=== PATIENT | male | born 1975 | race Caucasian/White ===

== ENCOUNTER 2017-12-27 12:16 | Emergency (ER) | payer OTHER ==
[2017-12-27 12:56] VITALS: BP 113/81; PULSE 79; RESP 18; TEMP 98.4
[2017-12-27] MEDS ORDERED: DIPH,PERTUS(ACELL)TETVAC-LF 0.5 ML VIAL IM ONE (13:01)
--- NOTE | 2017-12-27 13:58 | ED ---
Upper Extremity HPI - General Chief Complaint: Extremity Injury, Upper Stated Complaint: Poss Metal Piece in L Arm Time Seen by Provider: 12/27/17 12:58 Source: patient, RN notes reviewed Mode of arrival: ambulatory Limitations: no limitations - History of Present Illness Initial Comments: 42-year-old male presents emergency Department chief complaint foreign body left arm. Patient states that he was taking another hammer to remove a Board from his deck and states that he struck another hammer and states that it chipped off a piece into his left arm. He is not sure when his last tetanus was. Patient states that his left forearm he is right-hand dominant. - Related Data Previous Rx's Medication Instructions Recorded Cephalexin [Keflex] 500 mg PO Q6HR #28 cap 12/27/17 Allergies Allergy/AdvReac Type Severity Reaction Status Date / Time No Known Allergies Allergy Verified 12/27/17 12:55 Review of Systems ROS Statement: Those systems with pertinent positive or pertinent negative responses have been documented in the HPI. ROS Other: All systems not noted in ROS Statement are negative. Past Medical History Past Medical History: No Reported History History of Any Multi-Drug Resistant Organisms: None Reported Past Surgical History: Appendectomy, Cholecystectomy Past Psychological History: PTSD Smoking Status: Never smoker Past Alcohol Use History: None Reported Past Drug Use History: None Reported General Exam Limitations: no limitations General appearance: alert, in no apparent distress Respiratory exam: Present: normal lung sounds bilaterally. Absent: respiratory distress, wheezes, rales, rhonchi, stridor Cardiovascular Exam: Present: regular rate, normal rhythm, normal heart sounds. Absent: systolic murmur, diastolic murmur, rubs, gallop, clicks Extremities exam: Present: other (Left forearm there is a small puncture wound no active bleeding patient has full range of motion neurovascular intact) Course Vital Signs 12/27/17 12:54 Temperature 98.4 F Pulse Rate 79 Respiratory 18 Rate Blood Pressure 113/81 O2 Sat by Pulse 100 Oximetry Procedures - Procedures Initial comment: Foreign-body left arm area was anesthetized with 1% lidocaine without epinephrine 4 mL were used #11 blade was used to make the incision larger, hemostats. Used to remove the foreign body with no complications. Patient means to be neurovascular intact full range of motion. Medical Decision Making - Medical Decision Making 42-year-old male presented for left arm foreign-body this was removed in the emergency department. Patient was placed on antibiotics. His tetanus was updated. Disposition Clinical Impression: Foreign body in left forearm Disposition: HOME SELF-CARE Condition: Stable Instructions: Soft Tissue Foreign Body (ED) Additional Instructions: Please return to the Emergency Department if symptoms worsen or any other concerns. Prescriptions: Cephalexin [Keflex] 500 mg PO Q6HR #28 cap Is patient prescribed a controlled substance at d/c from ED?: No Referrals: Michael Mcknight MD [Primary Care Provider] - 1-2 days Time of Disposition: 13:58
--- NOTE | 2017-12-27 14:03 | XR ---
EXAMINATION TYPE: XR forearm LT , 2 VIEWS DATE OF EXAM ORDERED: 12/27/2017 HISTORY: Pain. COMPARISON: None. FINDINGS: No fracture or dislocation is seen. There is a 4.2 mm metallic sliver in the superficial d orsal soft tissues of the distal forearm. IMPRESSION: 1. NO ACUTE OSSEOUS LESION. 2. RETAINED FOREIGN BODY.
--- NOTE | 2017-12-27 14:55 | XR ---
Left forearm HISTORY: Removal of foreign body 2 views of the forearm correlated to prior examination dated earlier time. The radiopaque foreign body is no longer evident. IMPRESSION: Foreign body removal
== END 2017-12-27 14:40 | disposition home or self-care (01) ==
LOC: EC 12:16
DX: S51.842A Puncture wound with foreign body of left forearm, initial encounter (principal); Z23 Encounter for immunization; W45.8XXA Other foreign body or object entering through skin, initial encounter; Y93.89 Activity, other specified
CPT/HCPCS: 10120; 90471; 90715; 99283

== ENCOUNTER 2018-03-14 13:11 | Emergency (ER) | payer OTHER ==
[2018-03-14 13:38] VITALS: RESP 18
[2018-03-14] MEDS ORDERED: GELATIN SPONGE,ABSORB (LARGE) 1 EACH SPONGE TOPICAL STA (14:22)
--- NOTE | 2018-03-14 14:41 | ED ---
General Adult HPI - General Chief complaint: Wound/Laceration Stated complaint: Finger Lac Time Seen by Provider: 03/14/18 13:47 Source: patient, RN notes reviewed Mode of arrival: ambulatory Limitations: no limitations - History of Present Illness Initial comments: 42-year-old male presents to the emergency department for a chief complaint of laceration to the left third digit. Patient states he was cutting apples when he accidentally cut his finger. Patient states he could not get it to stop bleeding. Patient states his tetanus is up to date as of 2 months ago. He denies any other injuries.Patient has no other complaints at this time including shortness of breath, chest pain, abdominal pain, nausea or vomiting, headache, or visual changes. - Related Data Previous Rx's Medication Instructions Recorded Cephalexin [Keflex] 500 mg PO Q6HR #28 cap 12/27/17 Allergies Allergy/AdvReac Type Severity Reaction Status Date / Time No Known Allergies Allergy Verified 03/14/18 13:38 Review of Systems ROS Statement: Those systems with pertinent positive or pertinent negative responses have been documented in the HPI. ROS Other: All systems not noted in ROS Statement are negative. Past Medical History Past Medical History: No Reported History History of Any Multi-Drug Resistant Organisms: None Reported Past Surgical History: Appendectomy, Cholecystectomy Past Psychological History: PTSD Smoking Status: Never smoker Past Alcohol Use History: None Reported Past Drug Use History: None Reported General Exam Limitations: no limitations General appearance: alert, in no apparent distress Head exam: Present: atraumatic, normocephalic, normal inspection Eye exam: Present: normal appearance, PERRL, EOMI. Absent: scleral icterus, conjunctival injection, periorbital swelling ENT exam: Present: normal exam, mucous membranes moist Neck exam: Present: normal inspection, full ROM. Absent: tenderness, meningismus, lymphadenopathy Respiratory exam: Present: normal lung sounds bilaterally. Absent: respiratory distress, wheezes, rales, rhonchi, stridor Cardiovascular Exam: Present: regular rate, normal rhythm, normal heart sounds. Absent: systolic murmur, diastolic murmur, rubs, gallop, clicks GI/Abdominal exam: Present: normal bowel sounds Extremities exam: Present: full ROM (Full range of motion of left third finger at MCP, PIP, and DIP joints), tenderness (Tenderness to avulsion site), normal capillary refill (Capillary refill less than 2 seconds and radial pulse 2+ in the left upper extremity), other (There is a superficial avulsion laceration to the radial aspect of the distal phalanx of the left third digit. Finger nail is not involved.) Course Vital Signs 03/14/18 13:36 Temperature 98.2 F Pulse Rate 72 Respiratory 18 Rate Blood Pressure 113/79 O2 Sat by Pulse 99 Oximetry Medical Decision Making - Medical Decision Making 42-year-old male presents to the emergency department for a chief complaint of superficial avulsion injury to the left third digit. Patient cut his finger while chopping apples. This happened about one hour ago and patient could not stop it from bleeding so he came to the emergency department. On exam patient has a superficial avulsion laceration involving the distal phalanx radial aspect of the left third finger. Full range of motion and neurovascular intact. Wound is superficial and is not deep enough to warrant an x-ray. Wound was cleaned thoroughly with soap and water and Gelfoam was applied without complication. It was then bandaged with gauze. Patient was educated to take the gauze off tomorrow and to let Gelfoam fall off on its own. He was educated to keep the Gelfoam dry until this occurs. He is to follow-up with primary care for a wound recheck in one to 2 days. Patient aware to monitor for any signs of infection and to return if these occur. Disposition Clinical Impression: Laceration Disposition: HOME SELF-CARE Condition: Good Instructions: Laceration (ED) Additional Instructions: Please take off the dressing tomorrow but the Gelfoam fall off on its own. After that, keep area clean. Monitor for any signs of infection such as spreading or streaking redness and return if these occur. Return if you have any other worsening symptoms. Follow up with primary care in 2 days for a wound recheck. Is patient prescribed a controlled substance at d/c from ED?: No Referrals: Michael Mcknight MD [Primary Care Provider] - 1-2 days Time of Disposition: 14:40
[2018-03-14 14:49] VITALS: BP 112/69; PULSE 73; TEMP 98
== END 2018-03-14 14:49 | disposition home or self-care (01) ==
LOC: EC 13:11
DX: S61.213A Laceration without foreign body of left middle finger without damage to nail, initial encounter (principal); W45.8XXA Other foreign body or object entering through skin, initial encounter; Y93.89 Activity, other specified; Y92.009 Unspecified place in unspecified non-institutional (private) residence as the place of occurrence of the external cause
CPT/HCPCS: 99282

== ENCOUNTER 2018-06-06 12:59 | Emergency (ER) | payer OTHER ==
[2018-06-06 13:11] VITALS: RESP 18
[2018-06-06] MEDS ORDERED: ASPIRIN 81 MG PO STA (13:27)
[2018-06-06] MEDS ORDERED: NITROGLYCERIN OINT 1 INCH/GM PACKET TOPICAL STA (13:27)
[2018-06-06] MEDS ORDERED: SODIUM CHLORIDE 0.9% 500 ML 500 ML IV STA (13:27)
--- NOTE | 2018-06-06 13:34 | ED ---
General Adult HPI - General Chief complaint: Chest Pain Stated complaint: Dizzy, CHest Pain Time Seen by Provider: 06/06/18 13:00 Source: patient, RN notes reviewed Mode of arrival: ambulatory Limitations: no limitations - History of Present Illness Initial comments: This is a 42-year-old male with a past medical history of elevated cholesterol for which she was never been treated. Patient also states he has a positive family history of heart disease. Patient comes in today because since yesterday she's been lightheaded since his environment is moving around him. Patient states he feels like he is drunk when he walks he has to grab onto thinks. Patient states he at no time felt like he was going to be syncopal. Patient denies any palpitations shortness of breath or difficulty breathing. Patient states he has been having some chest pain on both sides of the sternum typically lasting 3-4 minutes. Patient states he feels different than his normal chest tenderness from working out. Patient denies any nausea vomiting or diarrhea. Patient denies abdominal pain. Patient states he has had some diaphoretic episodes. Patient's not sure if those episodes coincide with his chest pain. Patient denies any leg swelling or calf tenderness. Patient denies any recent injury or trauma. Patient states movement of his head seems to make the dizziness worse. - Related Data Home Medications Medication Instructions Recorded Confirmed Ibuprofen [Advil] 400 mg PO Q8HR PRN 06/06/18 06/06/18 Allergies Allergy/AdvReac Type Severity Reaction Status Date / Time No Known Allergies Allergy Verified 06/06/18 13:32 Review of Systems ROS Statement: Those systems with pertinent positive or pertinent negative responses have been documented in the HPI. ROS Other: All systems not noted in ROS Statement are negative. Past Medical History Past Medical History: GERD/Reflux History of Any Multi-Drug Resistant Organisms: None Reported Past Surgical History: Appendectomy, Cholecystectomy Past Psychological History: PTSD Smoking Status: Never smoker Past Alcohol Use History: Occasional Past Drug Use History: None Reported General Exam - General Exam Comments Initial Comments: GENERAL: Patient is well-developed and well-nourished. Patient is nontoxic and well- hydrated and is in mild distress. ENT: Neck is soft and supple. No significant lymphadenopathy is noted. Oropharynx is clear. Moist mucous membranes. Neck has full range of motion without eliciting any pain. EYES: The sclera were anicteric and conjunctiva were pink and moist. Extraocular movements were intact and pupils were equal round and reactive to light. Eyelids were unremarkable. PULMONARY: Unlabored respirations. Good breath sounds bilaterally. No audible rales rhonchi or wheezing was noted. CARDIOVASCULAR: There is a regular rate and rhythm without any murmurs gallops or rubs. ABDOMEN: Soft and nontender with normal bowel sounds. No palpable organomegaly was noted. There is no palpable pulsatile mass. SKIN: Skin is clear with no lesions or rashes and otherwise unremarkable. NEUROLOGIC: Patient is alert and oriented x3. Cranial nerves II through XII are grossly intact. Motor and sensory are also intact. Normal speech, volume and content. Symmetrical smile. MUSCULOSKELETAL: Normal extremities with adequate strength and full range of motion. LYMPHATICS: No significant lymphadenopathy is noted PSYCHIATRIC: Normal psychiatric evaluation. Limitations: no limitations Course Vital Signs 06/06/18 06/06/18 13:08 13:15 Temperature 98.1 F Pulse Rate 86 Pulse Rate [ 85 Bilateral Clinical Administrative Coordinator ] Respiratory 18 Rate Blood Pressure 138/76 O2 Sat by Pulse 97 Oximetry Medical Decision Making - Medical Decision Making Patient states he drinks quite a bit of water every day and does not believe she is dehydrated because of this. EKG shows normal sinus rhythm at 74 bpm IN interval 220 QRS is 94 QT interval 396 QTC is 439 per patient's EKG shows no ST segment elevation or depression or T wave abnormalities are noted. Chest x-ray shows no acute abnormality. I recommended the patient stay for his chest pain and get repeat enzymes and see cardiology he states he was unable to because he is a single father has daycare was 2 daughters one of which has a diabetic. He stated he try to get a number of people to help him but no one would so he decided to sign out AMA. - Lab Data Result diagrams: 06/06/18 13:43 06/06/18 13:43 Lab Results 06/06/18 06/06/18 06/06/18 Range/Units 13:43 13:43 13:43 WBC 7.0 (3.8-10.6) k/uL RBC 4.74 (4.30-5.90) m/uL Hgb 13.6 (13.0-17.5) gm/dL Hct 42.4 (39.0-53.0) % MCV 89.4 (80.0-100.0) fL MCH 28.7 (25.0-35.0) pg MCHC 32.1 (31.0-37.0) g/dL RDW 13.0 (11.5-15.5) % Plt Count 285 (150-450) k/uL Neutrophils % 67 % Lymphocytes % 25 % Monocytes % 3 % Eosinophils % 4 % Basophils % 0 % Neutrophils # 4.7 (1.3-7.7) k/uL Lymphocytes # 1.7 (1.0-4.8) k/uL Monocytes # 0.2 (0-1.0) k/uL Eosinophils # 0.3 (0-0.7) k/uL Basophils # 0.0 (0-0.2) k/uL PT (9.0-12.0) sec INR (<1.2) APTT (22.0-30.0) sec D-Dimer (<0.60) mg/L FEU Sodium 141 (137-145) mmol/L Potassium 4.2 (3.5-5.1) mmol/L Chloride 108 H (98-107) mmol/L Carbon Dioxide 22 (22-30) mmol/L Anion Gap 11 mmol/L BUN 13 (9-20) mg/dL Creatinine 0.88 (0.66-1.25) mg/dL Est GFR (CKD-EPI)AfAm >90 (>60 ml/min/1.73 sqM) Est GFR (CKD-EPI)NonAf >90 (>60 ml/min/1.73 sqM) Glucose 137 H (74-99) mg/dL Calcium 10.0 (8.4-10.2) mg/dL Magnesium 2.1 (1.6-2.3) mg/dL Total Bilirubin 1.1 (0.2-1.3) mg/dL AST 21 (17-59) U/L ALT 35 (21-72) U/L Alkaline Phosphatase 69 (38-126) U/L Total Creatine Kinase 122 (55-170) U/L CK-MB (CK-2) 0.7 (0.0-2.4) ng/mL CK-MB (CK-2) Rel Index 0.6 Troponin I <0.012 (0.000-0.034) ng/mL Total Protein 7.2 (6.3-8.2) g/dL Albumin 4.1 (3.5-5.0) g/dL 06/06/18 Range/Units 13:43 WBC (3.8-10.6) k/uL RBC (4.30-5.90) m/uL Hgb (13.0-17.5) gm/dL Hct (39.0-53.0) % MCV (80.0-100.0) fL MCH (25.0-35.0) pg MCHC (31.0-37.0) g/dL RDW (11.5-15.5) % Plt Count (150-450) k/uL Neutrophils % % Lymphocytes % % Monocytes % % Eosinophils % % Basophils % % Neutrophils # (1.3-7.7) k/uL Lymphocytes # (1.0-4.8) k/uL Monocytes # (0-1.0) k/uL Eosinophils # (0-0.7) k/uL Basophils # (0-0.2) k/uL PT 10.1 (9.0-12.0) sec INR 0.9 (<1.2) APTT 24.3 (22.0-30.0) sec D-Dimer <0.17 (<0.60) mg/L FEU Sodium (137-145) mmol/L Potassium (3.5-5.1) mmol/L Chloride (98-107) mmol/L Carbon Dioxide (22-30) mmol/L Anion Gap mmol/L BUN (9-20) mg/dL Creatinine (0.66-1.25) mg/dL Est GFR (CKD-EPI)AfAm (>60 ml/min/1.73 sqM) Est GFR (CKD-EPI)NonAf (>60 ml/min/1.73 sqM) Glucose (74-99) mg/dL Calcium (8.4-10.2) mg/dL Magnesium (1.6-2.3) mg/dL Total Bilirubin (0.2-1.3) mg/dL AST (17-59) U/L ALT (21-72) U/L Alkaline Phosphatase (38-126) U/L Total Creatine Kinase (55-170) U/L CK-MB (CK-2) (0.0-2.4) ng/mL CK-MB (CK-2) Rel Index Troponin I (0.000-0.034) ng/mL Total Protein (6.3-8.2) g/dL Albumin (3.5-5.0) g/dL Disposition Clinical Impression: Chest pain Disposition: Left Against Medical Advice Instructions: Chest Pain (ED) Is patient prescribed a controlled substance at d/c from ED?: No Referrals: Michael Mcknight MD [Primary Care Provider] - 1-2 days Time of Disposition: 15:15
[2018-06-06 13:55] LABS: Basophils % (A) 0 %; Eosinophils # (A) 0.3 k/uL (0-0.7); Eosinophils % (A) 4 %; HCT 42.4 % (39.0-53.0); HGB 13.6 gm/dL (13.0-17.5); Lymphocytes # (A) 1.7 k/uL (1.0-4.8); Lymphocytes % (A) 25 %; MCH 28.7 pg (25.0-35.0); MCHC 32.1 g/dL (31.0-37.0); MCV 89.4 fL (80.0-100.0); Mean Platelet Volume 6.8; Monocytes # (A) 0.2 k/uL (0-1.0); Monocytes % (A) 3 %; Neutrophils # (A) 4.7 k/uL (1.3-7.7); Neutrophils % (A) 67 %; Platelet Count 285 k/uL (150-450); RBC 4.74 m/uL (4.30-5.90)
[2018-06-06 14:07] LABS: ALT 35 U/L (21-72); AST 21 U/L (17-59); Albumin 4.1 g/dL (3.5-5.0); Alkaline Phosphatase 69 U/L (38-126); Anion Gap 11 mmol/L; Blood Urea Nitrogen 13 mg/dL (9-20); Carbon Dioxide 22 mmol/L (22-30); Chloride 108 mmol/L (98-107); Glucose 137 mg/dL (74-99); Magnesium 2.1 mg/dL (1.6-2.3); Potassium 4.2 mmol/L (3.5-5.1); Sodium 141 mmol/L (137-145); Total Bilirubin 1.1 mg/dL (0.2-1.3); Total Protein 7.2 g/dL (6.3-8.2)
[2018-06-06 14:09] LABS: D-Dimer <0.17 mg/L FEU (<0.60); INR 0.9 (<1.2); Prothrombin Time 10.1 sec (9.0-12.0)
[2018-06-06 14:10] LABS: Partial Thromboplastin Time 24.3 sec (22.0-30.0)
--- NOTE | 2018-06-06 14:12 | XR ---
EXAMINATION TYPE: XR chest 2V DATE OF EXAM: 06/06/2018 COMPARISON: NONE HISTORY: Chest pain TECHNIQUE: Frontal and lateral views of the chest are obtained. FINDINGS: Heart and mediastinum are normal. Lungs are clear. Diaphragm is normal. Bony thorax is int act. There are chest leads. IMPRESSION: Normal chest
[2018-06-06 14:15] LABS: Creatine Kinase 122 U/L (55-170)
[2018-06-06 14:28] LABS: Creatine Kinase MB 0.7 ng/mL (0.0-2.4); Troponin I <0.012 ng/mL (0.000-0.034)
[2018-06-06 15:44] VITALS: BP 100/79; PULSE 74; TEMP 97.8
== END 2018-06-06 15:42 | disposition left against medical advice (07) ==
LOC: EC 12:59
DX: R07.9 Chest pain, unspecified (principal); R42 Dizziness and giddiness; R61 Generalized hyperhidrosis
CPT/HCPCS: 36415; 71046; 80053; 82550; 82553; 83735; 84484; 85025; 85379; 85610; 85730; 93005; 96360; 99285

== ENCOUNTER 2020-02-01 08:03 | Inpatient (IN) | payer OTHER ==
[2020-02-01] MEDS ORDERED: DIAZEPAM 5 MG/ML 2 ML INJ IVP STA (08:29)
[2020-02-01] MEDS ORDERED: SODIUM CHLORIDE 0.9% 1,000 ML IV STA (08:29)
[2020-02-01] MEDS ORDERED: ONDANSETRON 4 MG/2 ML VIAL IVP STA (08:30)
[2020-02-01 08:44] LABS: Basophils % (A) 1 %; Eosinophils # (A) 0.1 k/uL (0-0.7); Eosinophils % (A) 1 %; HCT 47.1 % (39.0-53.0); HGB 15.6 gm/dL (13.0-17.5); Lymphocytes # (A) 1.9 k/uL (1.0-4.8); Lymphocytes % (A) 31 %; MCH 29.7 pg (25.0-35.0); MCHC 33.2 g/dL (31.0-37.0); MCV 89.4 fL (80.0-100.0); Mean Platelet Volume 7.4; Monocytes # (A) 0.3 k/uL (0-1.0); Monocytes % (A) 5 %; Neutrophils # (A) 3.6 k/uL (1.3-7.7); Neutrophils % (A) 59 %; Platelet Count 283 k/uL (150-450); RBC 5.26 m/uL (4.30-5.90); RDW 12.4 % (11.5-15.5)
[2020-02-01 08:51] LABS: Prothrombin Time 10.3 sec (9.0-12.0)
[2020-02-01 08:54] LABS: ALT 30 U/L (4-49); AST 24 U/L (17-59); African American GFR (CKD) >90 (>60 ml/min/1.73 sqM); Albumin 4.9 g/dL (3.5-5.0); Alkaline Phosphatase 94 U/L (38-126); Anion Gap 13 mmol/L; Blood Urea Nitrogen 13 mg/dL (9-20); Carbon Dioxide 20 mmol/L (22-30); Chloride 105 mmol/L (98-107); Glucose 116 mg/dL (74-99); Non-African American GFR(CKD) >90 (>60 ml/min/1.73 sqM); Sodium 138 mmol/L (137-145); Total Bilirubin 2.6 mg/dL (0.2-1.3); Total Protein 8.2 g/dL (6.3-8.2)
--- NOTE | 2020-02-01 09:18 | ED ---
Dizziness HPI - General Chief Complaint: Dizziness Stated Complaint: Dizzy and Vomiting Time Seen by Provider: 02/01/20 08:10 Source: patient Mode of arrival: ambulatory Limitations: no limitations - History of Present Illness Initial Comments: 44-year-old healthy male who presents the emergency department after he has had vertigo since Thursday. States it was sudden onset with the sensation of the room was spinning. He went to see his primary care physician who gave him a prescription for meclizine. Reports he has been taking it 3 times daily at home without improvement in his symptoms. Symptoms are worse with positional changes. Admits to associated nausea and vomiting. States he has not eaten anything due to his symptoms. Admits to a 3 out of 10 global headache. No recent head trauma. Does admit to recent chiropractic manipulations of the neck. No photophobia or neck stiffness. No sick contacts. Denies any chest pain or shortness of breath. No history of similar in the past. Denies any unilateral numbness, tingling or weakness. Admits to bilateral ear pain. No sore throat or fevers. No history of CVA or TIA. No other alleviating, precipitating or modifying factors - Related Data Home Medications Medication Instructions Recorded Confirmed Ibuprofen [Advil] 400 mg PO Q8HR PRN 06/06/18 02/01/20 Loratadine [Claritin] 10 mg PO DAILY PRN 02/01/20 02/01/20 Meclizine [Antivert] 12.5 mg PO TID 02/01/20 02/01/20 Allergies Allergy/AdvReac Type Severity Reaction Status Date / Time No Known Allergies Allergy Verified 02/01/20 08:42 Review of Systems ROS Statement: Those systems with pertinent positive or pertinent negative responses have been documented in the HPI. ROS Other: All systems not noted in ROS Statement are negative. Past Medical History Past Medical History: GERD/Reflux History of Any Multi-Drug Resistant Organisms: None Reported Past Surgical History: Appendectomy, Cholecystectomy Past Psychological History: PTSD Smoking Status: Never smoker Past Alcohol Use History: Occasional Past Drug Use History: None Reported - Past Family History Mother Family Medical History: CVA/TIA, Diabetes Mellitus, Hypertension Daughter(s) Family Medical History: Diabetes Mellitus Additional Family Medical History / Comment(s): Juvenile diabetes. Father History Unknown: Yes General Exam Limitations: no limitations Course Vital Signs 02/01/20 02/01/20 02/01/20 08:07 08:52 09:28 Temperature 98 F Pulse Rate 70 64 65 Respiratory 18 16 16 Rate Blood Pressure 117/78 117/83 118/83 O2 Sat by Pulse 98 98 99 Oximetry EKG Findings - EKG Comments: EKG Findings:: EKG demonstrates a normal sinus rhythm with a ventricular rate of 70. SC interval 118. QRS 94. QTC of 453. No acute ST segment elevations or depressions concerning for ischemic changes Medical Decision Making - Medical Decision Making Upon arrival patient's placed in room 6. A thorough history and physical exam was performed. Patient is hooked to continuous pulse ox and cardiac monitoring. 12-lead EKG was performed. PIV is established. Patient was given a liter bolus of normal saline informal grams of Zofran. He was also given 5 mg of Valium. Laboratory studies were conducted patient went for a CT of his brain as well as CT angiography. Laboratory studies are all normal. CT of the brain demonstrates no acute process. The patient is reevaluated and continues to have laboratory nystagmus. He was given 25 mg of oral meclizine. Patient is reevaluated after 30 minutes and continues to be unable to sit up in the bed due to dizziness. Because of the persistence of the symptoms I did recommend hospital admission for which patient did agree to. Patient will be admitted to [facility] and is currently awaiting a bed - Lab Data Result diagrams: 02/01/20 08:31 02/01/20 08:31 Lab Results 02/01/20 02/01/20 02/01/20 Range/Units 08:31 08:31 08:31 WBC 6.0 (3.8-10.6) k/uL RBC 5.26 (4.30-5.90) m/uL Hgb 15.6 (13.0-17.5) gm/dL Hct 47.1 (39.0-53.0) % MCV 89.4 (80.0-100.0) fL MCH 29.7 (25.0-35.0) pg MCHC 33.2 (31.0-37.0) g/dL RDW 12.4 (11.5-15.5) % Plt Count 283 (150-450) k/uL Neutrophils % 59 % Lymphocytes % 31 % Monocytes % 5 % Eosinophils % 1 % Basophils % 1 % Neutrophils # 3.6 (1.3-7.7) k/uL Lymphocytes # 1.9 (1.0-4.8) k/uL Monocytes # 0.3 (0-1.0) k/uL Eosinophils # 0.1 (0-0.7) k/uL Basophils # 0.0 (0-0.2) k/uL PT 10.3 (9.0-12.0) sec INR 1.0 (<1.2) Sodium 138 (137-145) mmol/L Potassium 4.0 (3.5-5.1) mmol/L Chloride 105 (98-107) mmol/L Carbon Dioxide 20 L (22-30) mmol/L Anion Gap 13 mmol/L BUN 13 (9-20) mg/dL Creatinine 0.97 (0.66-1.25) mg/dL Est GFR (CKD-EPI)AfAm >90 (>60 ml/min/1.73 sqM) Est GFR (CKD-EPI)NonAf >90 (>60 ml/min/1.73 sqM) Glucose 116 H (74-99) mg/dL Calcium 10.0 (8.4-10.2) mg/dL Total Bilirubin 2.6 H (0.2-1.3) mg/dL AST 24 (17-59) U/L ALT 30 (4-49) U/L Alkaline Phosphatase 94 (38-126) U/L Troponin I (0.000-0.034) ng/mL Total Protein 8.2 (6.3-8.2) g/dL Albumin 4.9 (3.5-5.0) g/dL 02/01/20 Range/Units 08:31 WBC (3.8-10.6) k/uL RBC (4.30-5.90) m/uL Hgb (13.0-17.5) gm/dL Hct (39.0-53.0) % MCV (80.0-100.0) fL MCH (25.0-35.0) pg MCHC (31.0-37.0) g/dL RDW (11.5-15.5) % Plt Count (150-450) k/uL Neutrophils % % Lymphocytes % % Monocytes % % Eosinophils % % Basophils % % Neutrophils # (1.3-7.7) k/uL Lymphocytes # (1.0-4.8) k/uL Monocytes # (0-1.0) k/uL Eosinophils # (0-0.7) k/uL Basophils # (0-0.2) k/uL PT (9.0-12.0) sec INR (<1.2) Sodium (137-145) mmol/L Potassium (3.5-5.1) mmol/L Chloride (98-107) mmol/L Carbon Dioxide (22-30) mmol/L Anion Gap mmol/L BUN (9-20) mg/dL Creatinine (0.66-1.25) mg/dL Est GFR (CKD-EPI)AfAm (>60 ml/min/1.73 sqM) Est GFR (CKD-EPI)NonAf (>60 ml/min/1.73 sqM) Glucose (74-99) mg/dL Calcium (8.4-10.2) mg/dL Total Bilirubin (0.2-1.3) mg/dL AST (17-59) U/L ALT (4-49) U/L Alkaline Phosphatase (38-126) U/L Troponin I <0.012 (0.000-0.034) ng/mL Total Protein (6.3-8.2) g/dL Albumin (3.5-5.0) g/dL Disposition Clinical Impression: Vertigo, Nausea & vomiting Disposition: ADMITTED IP TO THIS [facility] Condition: Stable Is patient prescribed a controlled substance at d/c from ED?: No Decision to Admit Reason: Admit from EC Decision Date: 02/01/20 Decision Time: 10:19
[2020-02-01] MEDS ORDERED: MECLIZINE 12.5 MG TAB PO STA (09:21)
--- NOTE | 2020-02-01 09:28 | CT ---
EXAMINATION TYPE: CT brain wo con DATE OF EXAM: 02/01/2020 COMPARISON: None. HISTORY: Intractable vertigo. CT DLP: 1164.8 mGycm. Automated Exposure Control for Dose Reduction was Utilized. TECHNIQUE: CT scan of the head is performed without contrast. FINDINGS: There is no acute intracranial hemorrhage or midline shift identified. Mild ventricular a nd sulcal prominence especially for patient's age. Smith-white matter differentiation maintained. No s uspicious opacification of the mastoid air cells. The globes are intact and the visualized sinuses a re clear. IMPRESSION: No acute intracranial hemorrhage or midline shift is seen. Mild generalized atrophy.
--- NOTE | 2020-02-01 09:53 | CT ---
EXAMINATION TYPE: CT angio head neck DATE OF EXAM: 02/01/2020 HISTORY: Intractable vertigo. COMPARISON: NONE CT DLP: 609.4 mGycm. Automated Exposure Control for Dose Reduction was Utilized. TECHNIQUE: CTA scan of the head and neck are performed with IV Contrast, patient injected with 65 mL of Isovue 370, axial images are obtained, coronal and sagittal reformatted images are reviewed. Thre e-D reconstructed images are created on an independent workstation and reviewed. FINDINGS: Carotid/Vascular Structures: Normal 3 vessel origin from aortic arch. Right common carotid artery soheila ws normal origin from right brachiocephalic artery. No significant plaque or stenosis in the right co mmon or internal carotid artery. Some tortuous course to the proximal to mid right internal carotid a rtery is present. Mild peripheral mixed plaque in the left internal carotid artery shortly after its origin. No significant stenosis in the left common or internal carotid artery. Patent bilateral exter nal carotid arteries without significant plaque or stenosis. Codominant vertebrobasilar system. Vertebral arteries patent to basilar junction. Some tortuous cours e to the basilar artery. No significant focal stenosis or aneurysmal change. Hypoplastic bilateral po sterior communicating arteries are present. Images of the anterior circulation show patent short segm ent anterior communicating artery coronal image 12. There is no significant focal stenosis or aneurys mal change. Other: No significant abnormality identified. IMPRESSION: No significant stenosis in common or internal carotid arteries bilaterally. No significa nt stenosis or aneurysmal change at the level of the [place].
[2020-02-01] MEDS ORDERED: NALOXONE 0.4 MG/ML 1 ML VIAL IV PRN (10:20)
[2020-02-01] MEDS ORDERED: ONDANSETRON 4 MG/2 ML VIAL IVP PRN (10:20)
[2020-02-01] MEDS ORDERED: MECLIZINE 12.5 MG TAB PO PRN (10:24)
[2020-02-01] MEDS: SODIUM CHLORIDE 0.9% 1,000 ML IV SCH (10:45)
[2020-02-01] MEDS ORDERED: diazePAM 5 MG TAB PO PRN (12:03)
[2020-02-01] MEDS: INSULIN ASPART (NovoLOG) 100 UNIT/ML VIAL SQ SCH ×3 (12:22→21:41)
[2020-02-01] MEDS: DEXAMETHASONE SOD PHOSPHATE 4 MG/ML 1 ML VIAL IV SCH ×2 (12:34→15:05)
[2020-02-01 13:19] VITALS: BMI 27.9
[2020-02-01] MEDS ORDERED: IBUPROFEN 400 MG TAB PO PRN (13:47)
[2020-02-01] MEDS ORDERED: LORATADINE 10 MG TAB PO PRN (13:47)
[2020-02-01] MEDS ORDERED: TEMAZEPAM 15 MG CAP PO PRN (13:47)
[2020-02-01] MEDS ORDERED: HYDROcodone/APAP 5-325MG 1 EACH TAB PO PRN (13:48)
[2020-02-01] MEDS: MECLIZINE 25 MG TAB PO SCH ×2 (15:05→21:43)
[2020-02-01] MEDS: ACETAMINOPHEN TAB 500 MG TAB PO PRN ×2 (15:07→22:29)
--- NOTE | 2020-02-01 15:23 | P.CNNES ---
History of Present Illness Consult date: 02/01/20 Requesting physician: Marla Warren Reason for Consult: Intractable vertigo History of Present Illness: Patient is a 44-year-old male came to the hospital for vertigo. Patient states that on Thursday night, 2 days ago, when he was brushing teeth, felt dizzy. He just went to bed. Next day on Thursday, he woke up and the symptoms or intensified. While he was going to work, he had to lung puller because of vertigo. Late last night and this morning, symptoms got much worse about 10 times. Everything was spinning, he was throwing up. He came to ER this morning at 8 AM. Patient's vitals on arrival was blood pressure 117/78, pulse rate 70, temperature 90.8. Patient states that now when he is laying still, he is fe eling better, but if he turns his eyes, or head, particularly if he moves his head suddenly, he gets intense vertigo. Then he gets nausea. Patient denies any diplopia, slurred speech facial droop, focal numbness tingling weakness or incoordination issues. His balance is off because of dizziness. Patient underwent CT head showed no acute intracranial hemorrhage or midline shift. Mild generalized atrophy. Visualized paranasal sinuses are clear. External auditory canal is clear. CTA of head and neck showed no significant stenosis in common or internal carotid arteries bilaterally. No significant stenosis or aneurysmal change at the level of [place]. EKG shows normal sinus rhythm. CBC, PT/INR in Chem-20 is normal. Patient states he had history of vertigo once about "years ago", when he was diagnosed with ear infection. The symptoms lasted for a day, was not as severe as current episode. Patient denies hypertension diabetes, does not use tobacco or marijuana. Drinks alcohol very occasionally. Review of Systems Patient denies any chest pain shortness of breath wheezing or cough. Denies abdominal pain. He does feel nauseous when he gets vertigo. Denies diarrhea. Patient denies any head or neck injury. He does see chiropractors sometimes. All other review of systems unremarkable. Past Medical History Past Medical History: GERD/Reflux Additional Past Medical History / Comment(s): Lower back pain, bilateral scoliosis, recent cervical pain pt associates with chiropractic treatments, rare migraines, gastric ulcer. History of Any Multi-Drug Resistant Organisms: None Reported Past Surgical History: Appendectomy, Cholecystectomy Past Anesthesia/Blood Transfusion Reactions: No Reported Reaction Past Psychological History: PTSD Smoking Status: Never smoker Past Alcohol Use History: Occasional Past Drug Use History: None Reported - Past Family History Mother Family Medical History: CVA/TIA, Diabetes Mellitus, Hypertension Daughter(s) Family Medical History: Diabetes Mellitus Additional Family Medical History / Comment(s): Juvenile diabetes. Father History Unknown: Yes Medications and Allergies Home Medications Medication Instructions Recorded Confirmed Type Ibuprofen [Advil] 400 mg PO Q8HR PRN 06/06/18 02/01/20 History Loratadine [Claritin] 10 mg PO DAILY PRN 02/01/20 02/01/20 History Meclizine [Antivert] 12.5 mg PO TID 02/01/20 02/01/20 History Allergies Allergy/AdvReac Type Severity Reaction Status Date / Time No Known Allergies Allergy Verified 02/01/20 08:42 Physical Examination - Vital Signs Vital Signs: Vital Signs Temp Pulse Pulse Resp BP BP Pulse Ox 02/01/20 11:06 98.2 F 68 12 120/68 99 02/01/20 10:48 64 18 116/83 98 02/01/20 09:28 65 16 118/83 99 02/01/20 08:52 64 16 117/83 98 02/01/20 08:07 98 F 70 18 117/78 98 Intake and Output 01/31/20 02/01/20 02/01/20 22:59 06:59 14:59 Other: Weight 88.451 kg On examination patient is a young-looking middle aged male, in no acute distress. Patient is alert and awake fully oriented. Speech and language functions are normal. Attention and concentration fund of knowledge is adequate. On cranial nerve examination pupils are round and reacting to light, visual britton are full on confrontation, extraocular muscles revealed significant nystagmus only looking to the right side. Face is symmetric, tongue protrudes the midline. Palatal elevation and sensation normal hearing and shoulder shrug normal. On muscle strength testing there is no pronator drift and the strength is normal in arms and legs distally and proximally. Reflexes are 2+ and plantars downgoing. Sensory touch is equal with no neglect. No ataxia for [id number] or [id number] testing. Tone and bulk of muscles normal. Gait deferred. No carotid bruit or murmur, peripheral pulses present. Chest is clear, S1 and S2 audible. Abdomen soft nontender. Results - Laboratory Findings CBC and BMP: 02/01/20 08:31 02/01/20 08:31 Abnormal Lab Findings: Abnormal Labs 02/01/20 08:31 Carbon Dioxide 20 L Glucose 116 H Total Bilirubin 2.6 H Assessment and Plan Assessment: * Probable labyrinthitis. Plan: * Continue Antivert * Hydration. * Zofran as needed for nausea. * Medrol Dosepak. * Symptoms hopefully will resolve in the next 2-5 days. * Neurologically clear, when patient is clinically stable.
--- NOTE | 2020-02-01 15:42 | US ---
EXAMINATION TYPE: US carotid duplex BILAT DATE OF EXAM: 02/01/2020 COMPARISON: CTA earlier today CLINICAL HISTORY: stroke. Vertigo EXAM MEASUREMENTS: RIGHT: Peak Systolic Velocity (PSV) cm/sec ----- Right CCA: 100.0 ----- Right ICA: 89.2 ----- Right ECA: 99.7 ICA/CCA ratio: 0.9 RIGHT: End Diastole cm/sec ----- Right CCA: 19.2 ----- Right ICA: 18.1 ----- Right ECA: 9.1 LEFT: Peak Systolic Velocity (PSV) cm/sec ----- Left CCA: 100.4 ----- Left ICA: 89.8 ----- Left ECA: 91.4 ICA/CCA ratio: 0.9 LEFT: End Diastole cm/sec ----- Left CCA: 20.9 ----- Left ICA: 39.7 ----- Left ECA: 5.8 VERTEBRALS (direction of flow): Right Vertebral: Antegrade Left Vertebral: Antegrade Rhythm: Normal No significant plaque or elevated velocities visualized portion of the internal carotid arteries bila terally. No elevated velocities IMPRESSION: No hemodynamically significant stenosis in either internal carotid artery . Findings c orrelate with CTA neck earlier today which is noted more sensitive. Criteria for Assigning % of Stenosis / Diameter reduction (Estimation based on the indirect measurements of the internal carotid artery velocities (ICA PSV). 1. Normal (no stenosis)=ICA PSV < 125 cm/s: ratio < 2.0: ICA EDV<40 cm/s. 2. Less than 50% stenosis=ICA PSV < 125 cm/s: ratio < 2.0: ICA EDV<40 cm/s. 3. 50 to 69% stenosis=ICA PSV of 125 to 230 cm/s: ration 2.0 ? 4.0: ICA EDV 40-100 cm/s. 4. Greater than 70% stenosis to near occlusion= ICA PSV > 230 cm/s: ratio > 4.0: ICA EDV > 100 cm/s. 5. Near occlusion= ICA PSV velocities may be low or undetectable: variable ratio and ICA EDV. 6. Total occlusion=unable to detect flow.
[2020-02-01] MEDS ORDERED: MECLIZINE 12.5 MG TAB PO SCH (16:00)
[2020-02-01 16:38] LABS: Glucose,Whole Blood 174 mg/dL (75-99)
[2020-02-01 21:15] LABS: Glucose,Whole Blood 176 mg/dL (75-99)
[2020-02-01] MEDS: HEPARIN SODIUM,PORCINE 5,000 UNIT/ML 1 ML VIAL SQ SCH (21:43)
--- NOTE | 2020-02-01 23:13 | HP ---
HISTORY AND PHYSICAL DATE OF SERVICE: 02/01/2020 CHIEF COMPLAINTS: Dizziness and vomiting. HISTORY OF PRESENT ILLNESS: This 44-year-old gentleman with a past medical history of multiple medical problems, including GERD, low back pain, DJD, scoliosis, history of cholecystectomy, history of PTSD, being followed by Dr. Mcknight in the outpatient setting, was not feeling well since a couple of days ago. The patient was brushing his teeth and suddenly became dizzy and was unable to walk. Because of lack of improvement, the patient came to [facility] and admitted for further evaluation and treatment. Initial brain CT and angiography CT was within normal limits. Rotary nystagmus was observed and the patient is being closely monitored. There is no history of any fever, rigor or chills. No history of headache, loss of consciousness, seizures at this time. The patient is extremely unstable to walk. The patient is even unable to move the head in the bed, which is causing severe vertigo at this time. PAST MEDICAL HISTORY: GERD, low back pain, DJD, history of migraine, gastric ulcer, history of PTSD. HOME MEDICATIONS: 1. Antivert 12.5 mg t.i.d. 2. Claritin 10 mg daily. 3. Advil 400 mg q.8 p.r.n. ALLERGIES: NONE. FAMILY HISTORY: History of CVA, diabetes mellitus, hypertension, history of juvenile diabetes. SOCIAL HISTORY: No history of smoking. Occasional alcohol intake. REVIEW OF SYSTEMS: ENT: As mentioned earlier. CARDIOVASCULAR SYSTEM: No angina, palpitations. RESPIRATORY SYSTEM: No cough, hemoptysis. GI: No nausea, vomiting. : No dysuria or retention. NERVOUS SYSTEM: No numbness, weakness. ALLERGY/IMMUNOLOGY: No asthma, hayfever. MUSCULOSKELETAL: As mentioned earlier. HEMATOLOGY/ONCOLOGY: No history of anemia. ENDOCRINE: No history of diabetes, hypothyroidism. CONSTITUTIONAL: As mentioned earlier. DERMATOLOGY: Negative. RHEUMATOLOGY: Negative. PSYCHIATRY: As mentioned earlier. PHYSICAL EXAMINATION: Patient is alert and oriented x3. Pulse 68, blood pressure 120/60, respiration 12, temperature 98.2, pulse ox 99% on room air. HEENT: Conjunctivae normal. Oral mucosa moist. NECK: No jugular venous distention. No carotid bruit. No lymph node enlargement. CARDIOVASCULAR SYSTEM: S1, S2 muffled. RESPIRATORY SYSTEM: Breath sounds diminished at the bases. No rhonchi. No crackles. ABDOMEN: Soft, non-tender. No mass palpable. LEGS: No edema. No swelling. NERVOUS SYSTEM: Higher functions as mentioned earlier. Minimal nystagmus present; rotary nystagmus. No signs of cerebellar dysfunction. Cranial nerves are normal. Power is normal. Gait not tested. SKIN: No ulcer, rash, bleeding. JOINTS: No active deforming arthropathy. LYMPHATICS: No lymph node palpable in neck, axillae or groin. LABS: CBC within normal limits. Sodium 138, potassium 4. CO2 is 20, glucose 116, total bilirubin is 2.6. ASSESSMENT: 1. Severe intractable vertigo, possible benign positional vertigo. Rule out transient ischemic attack. 2. Elevated total bilirubin, possibly unconjugated hyperbilirubinemia. 3. Decreased carbon dioxide. 4. Gastroesophageal reflux disease. 5. Low back pain. 6. Bilateral scoliosis. 7. Recent cervical pain. 8. History of migraine. 9. History of gastric ulcer. 10.History of cholecystectomy. 11.History of post-traumatic stress disorder. 12.FULL CODE. RECOMMENDATIONS AND DISCUSSION: In this 44-year-old gentleman who presented with multiple medical issues, at this time we will monitor the patient closely, continue the current medications, continue symptomatic treatment. Antivert. I would also recommend a short course of dexamethasone. Monitor blood sugars closely. Neurology consultation. Complete neurovascular workup. Guarded prognosis because of multiple complex medical issues. Further recommendations to follow. A copy of this dictation is being forwarded to Dr. Mcknight, who is the primary physician. MMODL / IJN: [id number] /
[2020-02-02] MEDS: DEXAMETHASONE SOD PHOSPHATE 4 MG/ML 1 ML VIAL IV SCH ×5 (00:26→23:09)
[2020-02-02] MEDS: SODIUM CHLORIDE 0.9% 1,000 ML IV SCH ×2 (00:29→16:39)
[2020-02-02 06:07] LABS: Basophils % (A) 0 %; Eosinophils # (A) 0.1 k/uL (0-0.7); Eosinophils % (A) 0 %; HCT 44.9 % (39.0-53.0); HGB 14.5 gm/dL (13.0-17.5); Lymphocytes # (A) 0.9 k/uL (1.0-4.8); Lymphocytes % (A) 7 %; MCH 29.9 pg (25.0-35.0); MCHC 32.3 g/dL (31.0-37.0); MCV 92.5 fL (80.0-100.0); Mean Platelet Volume 7.3; Monocytes # (A) 0.2 k/uL (0-1.0); Monocytes % (A) 2 %; Neutrophils % (A) 91 %; Platelet Count 252 k/uL (150-450); RBC 4.85 m/uL (4.30-5.90); RDW 12.4 % (11.5-15.5); WBC 13.2 k/uL (3.8-10.6)
[2020-02-02 06:27] LABS: African American GFR (CKD) >90 (>60 ml/min/1.73 sqM); Anion Gap 8 mmol/L; Blood Urea Nitrogen 14 mg/dL (9-20); Calcium 9.3 mg/dL (8.4-10.2); Carbon Dioxide 24 mmol/L (22-30); Chloride 107 mmol/L (98-107); Cholesterol 229 mg/dL (<200); Glucose 149 mg/dL (74-99); HDL Cholesterol 43 mg/dL (40-60); LDL Cholesterol,Calculated 174 mg/dL (0-99); Non-African American GFR(CKD) >90 (>60 ml/min/1.73 sqM); Potassium 4.3 mmol/L (3.5-5.1); Sodium 139 mmol/L (137-145); Triglycerides 59 mg/dL (<150)
[2020-02-02 06:29] LABS: Glucose,Whole Blood 133 mg/dL (75-99)
[2020-02-02] MEDS: INSULIN ASPART (NovoLOG) 100 UNIT/ML VIAL SQ SCH ×4 (08:19→20:32)
--- NOTE | 2020-02-02 10:00 | ECHOF ---
Referral Reason:Stroke MEASUREMENTS -------- HEIGHT: 180.3 cm WEIGHT: 88.5 kg BP: RVIDd: 3.5 cm (< 3.3) IVSd: 0.9 cm (0.6 - 1.1) LVIDd: 5.0 cm (3.9 - 5.3) LVPWd: 1.2 cm (0.6 - 1.1) IVSs: 1.2 cm LVIDs: 3.4 cm LVPWs: 1.8 cm LAESV Index (A-L): 26.89 ml/m Ao Diam: 3.2 cm (2.0 - 3.7) AV Cusp: 1.8 cm (1.5 - 2.6) LA Diam: 2.6 cm (2.7 - 3.8) MV EXCURSION: 19.783 mm (> 18.000) MV EF SLOPE: 153 mm/s (70 - 150) EPSS: 0.5 cm MV E Charles: 0.80 m/s MV DecT: 197 ms MV A Charles: 0.45 m/s MV E/A Ratio: 1.76 RAP: 5.00 mmHg RVSP: 23.39 mmHg TAPSE: 22.56 mm FINDINGS -------- This was a technically good study. The left ventricular size is normal. There is mild concentric left ventricular hypertrophy. Overa ll left ventricular systolic function is normal with, an EF between 55 - 60 %. The diastolic fillin g pattern is normal for the age of the patient 9.57. The right ventricle is mildly enlarged. The left atrial size is normal. Normal LA size by volume 22+/-6 ml/m2. The right atrial size is normal. Interatrial and interventricular septum intact. The aortic valve is trileaflet and appears structurally normal. The mitral valve is normal. There is trace mitral regurgitation. The tricuspid valve appears structurally normal. Mild tricuspid regurgitation present. Right vent ricular systolic pressure is normal at < 35 mmHg. There is no pulmonic regurgitation present. The aortic root size is normal. Normal inferior vena cava with normal inspiratory collapse consistent with estimated right atrial pre ssure of 5 mmHg. There is no pericardial effusion. CONCLUSIONS -------- 1. There is mild concentric left ventricular hypertrophy. 2. Overall left ventricular systolic function is normal with, an EF between 55 - 60 %. 3. The diastolic filling pattern is normal for the age of the patient 9.57 4. The right ventricle is mildly enlarged. 5. There is trace mitral regurgitation. 6. Mild tricuspid regurgitation present. ORDER ADMINISTRATOR: Antonette Gandara RDCS
[2020-02-02] MEDS: MECLIZINE 25 MG TAB PO SCH ×3 (10:16→22:45)
[2020-02-02] MEDS: HEPARIN SODIUM,PORCINE 5,000 UNIT/ML 1 ML VIAL SQ SCH ×2 (10:16→20:32)
[2020-02-02] MEDS: PANTOPRAZOLE 40 MG TABLET PO SCH (10:18)
[2020-02-02 12:04] LABS: Glucose,Whole Blood 147 mg/dL (75-99)
--- NOTE | 2020-02-02 15:03 | P.PN ---
Subjective Progress Note Date: 02/02/20 Patient states his dizziness has improved. Still with certain movements triggers vertigo. Patient able to walk to the bathroom. Denies any numbness tingling focal weakness. Denies slurred speech. Objective - Vital Signs Vital signs: Vital Signs Temp 98.0 F 02/02/20 08:15 Pulse 83 02/02/20 08:15 Resp 16 02/02/20 08:15 BP 130/68 02/02/20 08:15 Pulse Ox 97 02/02/20 08:15 Intake & Output 02/01/20 02/02/20 02/02/20 18:59 06:59 18:59 Weight 88.451 kg Other: Voiding Method Toilet # Voids 2 1 - Exam Patient's mental status, speech and language functions are normal. Cranial nerves revealed pupils are reactive to light, visual britton are full, extrao cular muscles are intact. Patient has nystagmus looking to the right side. Patient has mild asymmetry of the right face. Tongue protrudes the midline. Palatal elevation and sensation normal muscle strength is no drift and the strength is normal in arms and legs. There is no ataxia for [id number] or [id number]-[id number] testing. Tone and bulk of muscles normal. Sensations are equal. Patient walked, appeared steady, but walking slowly. Patient had difficulty walking tandem. He can walk on his toes and heels. Romberg negative. - Labs CBC & Chem 7: 02/02/20 05:46 02/02/20 05:46 Labs: Abnormal Lab Results - Last 24 Hours (Table) 02/01/20 02/01/20 02/02/20 Range/Units 16:37 21:13 05:46 WBC 13.2 H (3.8-10.6) k/uL Neutrophils # 12.0 H (1.3-7.7) k/uL Lymphocytes # 0.9 L (1.0-4.8) k/uL Glucose (74-99) mg/dL POC Glucose (mg/dL) 174 H 176 H (75-99) mg/dL Cholesterol (<200) mg/dL LDL Cholesterol, Calc (0-99) mg/dL 02/02/20 02/02/20 02/02/20 Range/Units 05:46 06:25 12:03 WBC (3.8-10.6) k/uL Neutrophils # (1.3-7.7) k/uL Lymphocytes # (1.0-4.8) k/uL Glucose 149 H (74-99) mg/dL POC Glucose (mg/dL) 133 H 147 H (75-99) mg/dL Cholesterol 229 H (<200) mg/dL LDL Cholesterol, Calc 174 H (0-99) mg/dL Assessment and Plan Assessment: * Probable labyrinthitis. Plan: * Continue Antivert * Hydration. * Zofran as needed for nausea. * Medrol Dosepak. * Symptoms hopefully will resolve in the next 2-5 days. * MRI brain rule out CVA. * 2-D echo showed mild concentric LVH, EF is 55-60%. * CTA of head and neck negative. * Neurologically clear, when patient is clinically stable.
--- NOTE | 2020-02-02 15:32 | PN ---
PROGRESS NOTE DATE OF SERVICE: 02/02/2020 This 44-year-old gentleman admitted with dizziness and vomiting has significant vertigo also. No chest pain. No palpitations. No fever. The neurovascular workup is negative so far. Neurology is following the patient closely. Patient still has some gait dysfunction. PHYSICAL EXAMINATION: Alert and oriented x3. Pulse 83, blood pressure 130/60, respirations 16, temperature 98 degrees, pulse ox 97% on room air. HEENT: Conjunctivae normal. Oral mucosa moist. NECK: No jugular venous distention. No carotid bruit. No lymph node enlargement. CARDIOVASCULAR SYSTEM: S1, S2 muffled. RESPIRATORY SYSTEM: Breath sounds diminished at the bases. No rhonchi. No crackles. ABDOMEN: Soft, non-tender. LEGS: No edema. No swelling. NERVOUS SYSTEM: Minimal nystagmus present. LAB: WBC 13.2 and cholesterol is 229. LDL is 179. ASSESSMENT: 1. Severe intractable vertigo, possibly benign positional vertigo. Rule out transient ischemic attack. 2. Elevated total bilirubin, possibly unconjugated hyperbilirubinemia. 3. Hypercholesteremia and increased LDL. 4. Decreased carbon dioxide. 5. Gastroesophageal reflux disease. 6. Low back pain. 7. Bilateral scoliosis. 8. History of cervical pain. 9. History of migraine. 10.History of gastric ulcer. 11.History of cholecystectomy. 12.History of post-traumatic stress disorder. 13.FULL CODE. RECOMMENDATIONS AND DISCUSSION: I recommend to continue current medications, continue with the monitoring, symptomatic treatment. Otherwise, add Lipitor to the current regimen. Continue the short course of steroids and symptomatic treatment. Further recommendations to follow. Increase ambulation. Possible discharge within the next 24-48 hours if stable. MMODL / IJN: [id number] /
[2020-02-02] MEDS: ACETAMINOPHEN TAB 500 MG TAB PO PRN (16:35)
[2020-02-02 16:57] LABS: Glucose,Whole Blood 120 mg/dL (75-99)
[2020-02-02 20:37] LABS: Glucose,Whole Blood 153 mg/dL (75-99)
[2020-02-02] MEDS ORDERED: ATORVASTATIN 10 MG TAB PO SCH (21:00)
[2020-02-03] MEDS: SODIUM CHLORIDE 0.9% 1,000 ML IV SCH (02:40)
[2020-02-03] MEDS: DEXAMETHASONE SOD PHOSPHATE 4 MG/ML 1 ML VIAL IV SCH ×2 (06:18→12:01)
[2020-02-03 06:27] LABS: Glucose,Whole Blood 120 mg/dL (75-99)
[2020-02-03 06:50] LABS: Basophils % (A) 0 %; Eosinophils # (A) 0.1 k/uL (0-0.7); Eosinophils % (A) 0 %; Lymphocytes # (A) 1.1 k/uL (1.0-4.8); Lymphocytes % (A) 7 %; MCH 29.6 pg (25.0-35.0); MCHC 32.4 g/dL (31.0-37.0); MCV 91.2 fL (80.0-100.0); Mean Platelet Volume 7.5; Monocytes # (A) 0.5 k/uL (0-1.0); Monocytes % (A) 3 %; Neutrophils # (A) 14.9 k/uL (1.3-7.7); Neutrophils % (A) 90 %; Platelet Count 260 k/uL (150-450); RBC 4.71 m/uL (4.30-5.90); RDW 12.7 % (11.5-15.5); WBC 16.6 k/uL (3.8-10.6)
[2020-02-03 06:57] LABS: African American GFR (CKD) >90 (>60 ml/min/1.73 sqM); Anion Gap 8 mmol/L; Blood Urea Nitrogen 13 mg/dL (9-20); Calcium 9.4 mg/dL (8.4-10.2); Carbon Dioxide 24 mmol/L (22-30); Chloride 107 mmol/L (98-107); Glucose 123 mg/dL (74-99); Non-African American GFR(CKD) >90 (>60 ml/min/1.73 sqM); Potassium 4.3 mmol/L (3.5-5.1); Sodium 139 mmol/L (137-145)
[2020-02-03] MEDS: INSULIN ASPART (NovoLOG) 100 UNIT/ML VIAL SQ SCH ×2 (08:13→11:54)
[2020-02-03 08:16] VITALS: BP 121/69; PULSE 83; RESP 16; TEMP 97.9
[2020-02-03] MEDS: MECLIZINE 25 MG TAB PO SCH (08:21)
[2020-02-03] MEDS: PANTOPRAZOLE 40 MG TABLET PO SCH (08:21)
[2020-02-03] MEDS: HEPARIN SODIUM,PORCINE 5,000 UNIT/ML 1 ML VIAL SQ SCH (08:21)
--- NOTE | 2020-02-03 11:56 | MR ---
EXAMINATION TYPE: MR brain wo con DATE OF EXAM: 02/03/2020 COMPARISON: NONE HISTORY: Vertigo , Rt side vision abnormality TECHNIQUE: T1-weighted sagittal, T2, FLAIR, and diffusion axial, and T2 coronal coronal views of the brain are submitted. FINDINGS: There is no evidence of acute ischemia. The ventricles, basal cisterns, and sulci overlying the conv exities are consistent with the patient's age. There is no mass effect. There is an occasional area of subcutaneous millimeter abnormal signal within the white matter. Approximately 5 lesions are seen . No lesions perpendicular to the ventricular system. No callosal lesions. Craniocervical junction maintained. Sella turcica has a normal appearance. No cerebellopontine angle mass. Changes of chronic sinusitis. IMPRESSION: 1. No acute intracranial process. 2. Minimal nonspecific white matter changes.
[2020-02-03] MEDS: ACETAMINOPHEN TAB 500 MG TAB PO PRN (12:05)
--- NOTE | 2020-02-04 15:29 | CDI ---
Documentation Clarification Form Date: 02/04/20 From: Criss Anaya Phone: If you have a question about this query, please contact [place], Brake Drum Lathe Operator at [phone] between 8am and 5pm. Admit Date: 02/03/20 Discharge Date:02/03/20 Patient Name: Chris Ma Visit Number: [id number] ATTENTION: The Clinical Documentation Specialists (CDI) and [facility] Coding Staff appreciate your assistance in clarifying documentation. Please respond to the clarification below the line at the bottom and electronically sign. The CDI & [facility] Coding staff will review the response and follow-up if needed. Please note: Queries are made part of the Legal Health Record. If you have any questions, please contact the author of this message via ITS. Dear Dr. Salgado Conflicting documentation has been found in the medical record: You documented severe intractable vertigo, possibly benign positional vertigo. Rule out transient ischemic attack. Dr. Persaud documented probably labyrinthitis. Rule out CVA in his progress note and consult note. History/Risk Factors: Severe vertigo, migraine Clinical Indicators: Dizziness, nystagmus Treatment: IV Decadron, Antivert, 1 Liter NS fluid bolus, then at 75 cc/hr In your opinion, what is the most clinically appropriate diagnosis for this patient? CVA Ruled Out CVA TIA Ruled Out TIA, Labyrinthitis Benign positional vertigo Other explanation of clinical findings Unable to determine (no explanation for clinical findings) Labyrinthitis MTDD
== END 2020-02-03 16:07 | disposition home or self-care (01) | DRG 149 ==
LOC: EC 08:03 → 1SOBS 10:21 → OBSVTOIN 02-03 12:34
PROVIDERS: ADMIT Hospitalist; ATTEND Hospitalist
DX: H83.09 Labyrinthitis, unspecified ear (principal); E78.00 Pure hypercholesterolemia, unspecified; E78.5 Hyperlipidemia, unspecified; F43.10 Post-traumatic stress disorder, unspecified; K21.9 Gastro-esophageal reflux disease without esophagitis; M19.90 Unspecified osteoarthritis, unspecified site; M41.9 Scoliosis, unspecified; G43.909 Migraine, unspecified, not intractable, without status migrainosus; R79.89 Other specified abnormal findings of blood chemistry; Z87.11 Personal history of peptic ulcer disease; Z90.49 Acquired absence of other specified parts of digestive tract; Z83.3 Family history of diabetes mellitus; Z82.49 Family history of ischemic heart disease and other diseases of the circulatory system; Z82.3 Family history of stroke
CPT/HCPCS: 36415; 70450; 70496; 70498; 70551; 80048; 80053; 80061; 84484; 85025; 85610; 93005; 93306; 93880; 96361; 96374; 96375; 99285